=== PATIENT | female | born 1970 | race Caucasian/White ===

== ENCOUNTER → 2020-04-20 12:11 | Outpatient (BNVA) | payer MEDICARE, MEDICAID, SELFPAY | PROVIDERS: PCP Family Medicine; Visit Provider Student in an Organized Health Care Education/Training Program | DX: M05.9 Rheumatoid arthritis with rheumatoid factor, unspecified (principal); Z79.899 Other long term (current) drug therapy | CPT/HCPCS: 99214 ==

== ENCOUNTER → 2020-07-26 15:55 | Outpatient (BNVA) | payer MEDICARE, MEDICAID, SELFPAY | PROVIDERS: PCP Family Medicine; Visit Provider Student in an Organized Health Care Education/Training Program | DX: Z13.89 Encounter for screening for other disorder (principal) | CPT/HCPCS: Q3014 ==

== ENCOUNTER → 2020-08-28 10:32 | Outpatient (BNVA) | payer MEDICARE, MEDICAID, SELFPAY | PROVIDERS: Visit Provider Student in an Organized Health Care Education/Training Program | DX: Z76.89 Persons encountering health services in other specified circumstances (principal) | CPT/HCPCS: Q3014 ==

== ENCOUNTER 2020-11-21 14:04 | Outpatient (REF) | payer MEDICARE, MEDICAID, SELFPAY ==
[2020-11-21 16:29] LABS: MANUAL DIFF FLAG NO
[2020-11-21 16:34] LABS: Basophils Percent Auto 0.3 % (0-2); Eosinophils Percent Auto 0.9 % (0-4); Hematocrit 36.9 % (37-47); Hemoglobin 11.7 g/dl (12.0-16.0); Lymphocytes Absolute Auto 1.4 X10*3/uL (1.2-4.9); Lymphocytes Percent Auto 38.9 % (20-40); Mean Corpuscular HGB Conc 31.7 g/dl (31.0-35.0); Mean Corpuscular Hemoglobin 28.5 pg (27.0-33.0); Mean Corpuscular Volume 89.8 fL (80-98); Mean Platelet Volume 11.8 fL (9.4-12.3); Monocytes Absolute Auto 0.4 X10*3/uL (0.1-1.2); Monocytes Percent Auto 10.2 % (2-11); Neutrophils Absolute Auto 1.8 X10*3/uL (2.0-8.3); Neutrophils Percent Auto 49.7 % (45-73); Platelet Count 235 X10*3/uL (160-400); Red Blood Count 4.11 X10*6/uL (4.20-5.50); Red Cell Distribution Width 13.8 % (11.0-16.0); White Blood Count 3.5 X10*3/uL (4.8-10.8)
[2020-11-21 17:01] LABS: Alanine Aminotransferase 29 U/L (0-31); Albumin Level 4.5 g/dL (3.5-5.0); Alkaline Phosphatase 65 U/L (39-117); Anion Gap 16 (12-20); Aspartate Amino Transferase 32 U/L (5-31); Bilirubin Total 0.6 mg/dL (0.0-1.0); Blood Urea Nitrogen 11 mg/dL (9-16); C Reactive Protein 2.34 mg/dL (< or = 0.50); Carbon Dioxide 25 mmol/L (22-29); Chloride 103 mmol/L (96-108); Cholesterol 171 mg/dL; Estimated Glomerular Filt Rate > 60; Glucose Random 109 mg/dL (60-115); HDL Cholesterol 63 mg/dL; LDL Cholesterol Calculated 93 mg/dl; Potassium 4.2 mmol/L (3.3-5.1); Sodium 140 mmol/L (135-145); Total Protein 7.3 g/dL (6.5-8.0); Triglycerides 78 mg/dL
[2020-11-21 17:59] LABS: Erythrocyte Sedimentation Rate 23 MM/HR (0-20)
[2020-11-21 18:10] LABS: Reflex LDLD? No
== END 2020-11-21 14:05 | disposition home or self-care (01) ==
LOC: HO.HMGCLDS 14:04
PROVIDERS: PCP Family Medicine; Visit Provider Student in an Organized Health Care Education/Training Program
DX: M05.9 Rheumatoid arthritis with rheumatoid factor, unspecified (principal)
CPT/HCPCS: 36415; 80053; 80061; 85025; 85652; 86140

== ENCOUNTER → 2020-12-19 09:46 | Outpatient (BNVA) | payer MEDICARE, MEDICAID, SELFPAY | PROVIDERS: PCP Family Medicine; Visit Provider Student in an Organized Health Care Education/Training Program | DX: M05.9 Rheumatoid arthritis with rheumatoid factor, unspecified (principal); Z79.899 Other long term (current) drug therapy | CPT/HCPCS: 99212 ==

== ENCOUNTER 2021-02-18 11:51 | Outpatient (REF) | payer MEDICARE, MEDICAID, SELFPAY ==
[2021-02-18 13:17] LABS: MANUAL DIFF FLAG NO
[2021-02-18 13:22] LABS: Basophils Percent Auto 0.4 % (0-2); Eosinophils Percent Auto 0.6 % (0-4); Hematocrit 37.3 % (37-47); Hemoglobin 11.9 g/dl (12.0-16.0); Imm Gran Abs Auto 0.01 X10*3/uL (0.00-0.03); Imm Gran Pct Auto 0.2 % (0.0-0.4); Lymphocytes Absolute Auto 1.5 X10*3/uL (1.2-4.9); Lymphocytes Percent Auto 30.9 % (20-40); Mean Corpuscular HGB Conc 31.9 g/dl (31.0-35.0); Mean Corpuscular Hemoglobin 28.7 pg (27.0-33.0); Mean Corpuscular Volume 90.1 fL (80-98); Mean Platelet Volume 11.6 fL (9.4-12.3); Monocytes Absolute Auto 0.4 X10*3/uL (0.1-1.2); Monocytes Percent Auto 7.7 % (2-11); Neutrophils Percent Auto 60.2 % (45-73); Platelet Count 249 X10*3/uL (160-400); Red Blood Count 4.14 X10*6/uL (4.20-5.50); Red Cell Distribution Width 13.8 % (11.0-16.0)
[2021-02-18 13:51] LABS: Alanine Aminotransferase 24 U/L (0-31); Albumin Level 4.7 g/dL (3.5-5.0); Alkaline Phosphatase 65 U/L (39-117); Anion Gap 14 (12-20); Aspartate Amino Transferase 27 U/L (5-31); Bilirubin Total 0.4 mg/dL (0.0-1.0); Blood Urea Nitrogen 8 mg/dL (9-16); C Reactive Protein 2.09 mg/dL (< or = 0.50); Calcium 10.4 mg/dL (8.4-10.2); Carbon Dioxide 29 mmol/L (22-29); Chloride 103 mmol/L (96-108); Estimated Glomerular Filt Rate > 60; Glucose Random 107 mg/dL (60-115); Potassium 4.8 mmol/L (3.3-5.1); Sodium 141 mmol/L (135-145); Total Protein 7.4 g/dL (6.5-8.0)
[2021-02-18 14:12] LABS: Erythrocyte Sedimentation Rate 23 MM/HR (0-20)
== END 2021-02-18 11:52 | disposition home or self-care (01) ==
LOC: HO.LAB 11:51
PROVIDERS: PCP Family Medicine; Visit Provider Student in an Organized Health Care Education/Training Program
DX: M05.9 Rheumatoid arthritis with rheumatoid factor, unspecified (principal)
CPT/HCPCS: 36415; 80053; 85025; 85652; 86140

== ENCOUNTER → 2021-03-11 12:23 | Outpatient (BNVA) | payer MEDICARE, MEDICAID, SELFPAY | PROVIDERS: PCP Family Medicine; Visit Provider Nurse Practitioner Family | DX: M05.9 Rheumatoid arthritis with rheumatoid factor, unspecified (principal) | CPT/HCPCS: 99212 ==

== ENCOUNTER 2021-09-30 12:31 | Outpatient (REF) | payer MEDICARE, MEDICAID, SELFPAY ==
[2021-09-30 13:54] LABS: MANUAL DIFF FLAG NO
[2021-09-30 13:57] LABS: Basophils Percent Auto 0.4 % (0-2); Eosinophils Absolute Auto 0.1 X10*3/uL (0.0-0.4); Eosinophils Percent Auto 1.3 % (0-4); Hemoglobin 11.7 g/dl (12.0-16.0); Imm Gran Abs Auto 0.02 X10*3/uL (0.00-0.03); Imm Gran Pct Auto 0.4 % (0.0-0.4); Lymphocytes Absolute Auto 1.7 X10*3/uL (1.2-4.9); Lymphocytes Percent Auto 35.3 % (20-40); Mean Corpuscular HGB Conc 30.8 g/dl (31.0-35.0); Mean Corpuscular Hemoglobin 28.4 pg (27.0-33.0); Mean Corpuscular Volume 92.2 fL (80.0-98.0); Mean Platelet Volume 11.7 fL (9.4-12.3); Monocytes Absolute Auto 0.4 X10*3/uL (0.1-1.2); Neutrophils Absolute Auto 2.6 x10*3/uL (2.0-8.3); Neutrophils Percent Auto 54.6 % (45-73); Platelet Count 259 X10*3/uL (160-400); Red Blood Count 4.12 X10*6/uL (4.20-5.50); Red Cell Distribution Width 13.9 % (11.0-16.0); White Blood Count 4.7 X10*3/uL (4.8-10.8)
[2021-09-30 14:05] LABS: Alanine Aminotransferase 21 U/L (0-31); Albumin Level 4.5 g/dL (3.5-5.0); Alkaline Phosphatase 68 U/L (39-117); Anion Gap 14 (12-20); Aspartate Amino Transferase 29 U/L (5-31); Bilirubin Total 0.2 mg/dL (0.0-1.0); Blood Urea Nitrogen 10 mg/dL (9-16); C Reactive Protein 1.01 mg/dL (< or = 0.50); Calcium 10.1 mg/dL (8.4-10.2); Carbon Dioxide 30 mmol/L (22-29); Chloride 102 mmol/L (96-108); Estimated Glomerular Filt Rate > 60; Glucose Random 106 mg/dL (60-115); Potassium 4.3 mmol/L (3.3-5.1); Sodium 142 mmol/L (135-145); Total Protein 7.5 g/dL (6.5-8.0)
[2021-09-30 15:30] LABS: Erythrocyte Sedimentation Rate 19 MM/HR (0-20)
== END 2021-09-30 12:32 | disposition home or self-care (01) ==
LOC: HO.HMGCLDS 12:31
PROVIDERS: PCP Family Medicine; Visit Provider Nurse Practitioner Family
DX: M05.9 Rheumatoid arthritis with rheumatoid factor, unspecified (principal)
CPT/HCPCS: 36415; 80053; 85025; 85652; 86140

== ENCOUNTER → 2021-10-15 10:11 | Outpatient (BNVA) | payer MEDICARE, MEDICAID, SELFPAY | PROVIDERS: PCP Family Medicine; Visit Provider Nurse Practitioner Family | DX: M05.9 Rheumatoid arthritis with rheumatoid factor, unspecified (principal) | CPT/HCPCS: 99212 ==

== ENCOUNTER 2022-01-15 13:16 | Outpatient (REF) | payer MEDICARE, MEDICAID, SELFPAY ==
[2022-01-15 14:01] LABS: MANUAL DIFF FLAG NO
[2022-01-15 14:05] LABS: Basophils Percent Auto 0.2 % (0-2); Hematocrit 34.1 % (37.0-47.0); Imm Gran Abs Auto 0.01 X10*3/uL (0.00-0.03); Imm Gran Pct Auto 0.2 % (0.0-0.4); Lymphocytes Absolute Auto 1.8 X10*3/uL (1.2-4.9); Lymphocytes Percent Auto 43.2 % (20-40); Mean Corpuscular HGB Conc 32.3 g/dl (31.0-35.0); Mean Corpuscular Hemoglobin 28.4 pg (27.0-33.0); Mean Corpuscular Volume 87.9 fL (80.0-98.0); Mean Platelet Volume 11.3 fL (9.4-12.3); Monocytes Absolute Auto 0.4 X10*3/uL (0.1-1.2); Monocytes Percent Auto 8.7 % (2-11); Neutrophils Absolute Auto 1.9 x10*3/uL (2.0-8.3); Neutrophils Percent Auto 46.7 % (45-73); Platelet Count 232 X10*3/uL (160-400); Red Blood Count 3.88 X10*6/uL (4.20-5.50); Red Cell Distribution Width 13.5 % (11.0-16.0); White Blood Count 4.1 X10*3/uL (4.8-10.8)
[2022-01-15 14:30] LABS: Alanine Aminotransferase 18 U/L (0-31); Albumin Level 4.4 g/dL (3.5-5.0); Alkaline Phosphatase 70 U/L (39-117); Anion Gap 15 (12-20); Aspartate Amino Transferase 21 U/L (5-31); Bilirubin Total 0.4 mg/dL (0.0-1.0); Blood Urea Nitrogen 8 mg/dL (9-16); C Reactive Protein 1.67 mg/dL (< or = 0.50); Calcium 9.4 mg/dL (8.4-10.2); Carbon Dioxide 26 mmol/L (22-29); Chloride 104 mmol/L (96-108); Estimated Glomerular Filt Rate > 60; Glucose Random 90 mg/dL (60-115); Potassium 3.9 mmol/L (3.3-5.1); Sodium 141 mmol/L (135-145); Total Protein 6.8 g/dL (6.5-8.0)
[2022-01-15 15:03] LABS: Erythrocyte Sedimentation Rate 23 MM/HR (0-20)
== END 2022-01-15 13:17 | disposition home or self-care (01) ==
LOC: HO.HMGCLDS 13:16
PROVIDERS: PCP Family Medicine; Visit Provider Nurse Practitioner Family
DX: M05.9 Rheumatoid arthritis with rheumatoid factor, unspecified (principal)
CPT/HCPCS: 36415; 80053; 85025; 85652; 86140; 99212

== ENCOUNTER 2022-04-18 09:56 | Outpatient (REF) | payer MEDICARE, MEDICAID, SELFPAY ==
[2022-04-18 10:53] LABS: MANUAL DIFF FLAG NO
[2022-04-18 10:55] LABS: Basophils Percent Auto 0.5 % (0-2); Hematocrit 37.5 % (37.0-47.0); Hemoglobin 11.8 g/dl (12.0-16.0); Imm Gran Abs Auto 0.01 X10*3/uL (0.00-0.03); Imm Gran Pct Auto 0.3 % (0.0-0.4); Lymphocytes Absolute Auto 1.5 X10*3/uL (1.2-4.9); Lymphocytes Percent Auto 37.8 % (20-40); Mean Corpuscular HGB Conc 31.5 g/dl (31.0-35.0); Mean Corpuscular Hemoglobin 28.1 pg (27.0-33.0); Mean Corpuscular Volume 89.3 fL (80.0-98.0); Mean Platelet Volume 11.2 fL (9.4-12.3); Monocytes Absolute Auto 0.4 X10*3/uL (0.1-1.2); Monocytes Percent Auto 9.7 % (2-11); Neutrophils Percent Auto 50.7 % (45-73); Platelet Count 240 X10*3/uL (160-400); Red Cell Distribution Width 13.5 % (11.0-16.0); White Blood Count 3.9 X10*3/uL (4.8-10.8)
[2022-04-18 11:03] LABS: Alanine Aminotransferase 17 U/L (0-31); Aspartate Amino Transferase 22 U/L (5-31); C Reactive Protein 0.76 mg/dL (< or = 0.50); Estimated Glomerular Filt Rate > 60
[2022-04-18 11:33] LABS: Erythrocyte Sedimentation Rate 16 MM/HR (0-20)
== END 2022-04-18 09:57 | disposition home or self-care (01) ==
LOC: HO.10HDL 09:56
PROVIDERS: Visit Provider Nurse Practitioner Family
DX: M05.9 Rheumatoid arthritis with rheumatoid factor, unspecified (principal); Z79.899 Other long term (current) drug therapy
CPT/HCPCS: 36415; 82565; 84450; 84460; 85025; 85652; 86140; 99212

== ENCOUNTER → 2022-07-17 10:34 | Outpatient (BNVA) | payer MEDICARE, MEDICAID, SELFPAY | PROVIDERS: PCP Family Medicine; Visit Provider Nurse Practitioner Family | DX: Z23 Encounter for immunization (principal); M05.9 Rheumatoid arthritis with rheumatoid factor, unspecified | CPT/HCPCS: 90471; 90686; 99212 ==

== ENCOUNTER → 2022-10-16 09:02 | Outpatient (BNVA) | payer MEDICARE, MEDICAID, SELFPAY | PROVIDERS: PCP Family Medicine; Visit Provider Nurse Practitioner Family | DX: M05.9 Rheumatoid arthritis with rheumatoid factor, unspecified (principal); M79.7 Fibromyalgia; Z79.899 Other long term (current) drug therapy; Z11.59 Encounter for screening for other viral diseases; Z72.89 Other problems related to lifestyle | CPT/HCPCS: 36415; 82565; 84450; 84460; 85025; 85652; 86140; 86481; 86704; 86706; 86709; 86803; 87340; 99212 ==

== ENCOUNTER 2022-10-16 10:53 | Outpatient (REF) | payer MEDICARE, MEDICAID, SELFPAY ==
[2022-10-16 13:42] LABS: MANUAL DIFF FLAG NO
[2022-10-16 13:53] LABS: Basophils Percent Auto 0.3 % (0-2); Eosinophils Percent Auto 0.5 % (0-4); Hematocrit 36.2 % (37.0-47.0); Hemoglobin 11.7 g/dl (12.0-16.0); Lymphocytes Absolute Auto 1.4 X10*3/uL (1.2-4.9); Lymphocytes Percent Auto 37.7 % (20-40); Mean Corpuscular HGB Conc 32.3 g/dl (31.0-35.0); Mean Corpuscular Hemoglobin 29.1 pg (27.0-33.0); Mean Platelet Volume 11.9 fL (9.4-12.3); Monocytes Absolute Auto 0.3 X10*3/uL (0.1-1.2); Monocytes Percent Auto 8.7 % (2-11); Neutrophils Percent Auto 52.8 % (45-73); Platelet Count 213 X10*3/uL (160-400); Red Blood Count 4.02 X10*6/uL (4.20-5.50); Red Cell Distribution Width 13.5 % (11.0-16.0); White Blood Count 3.7 X10*3/uL (4.8-10.8)
[2022-10-16 14:31] LABS: Alanine Aminotransferase 17 U/L (0-31); Aspartate Amino Transferase 23 U/L (5-31); C Reactive Protein 1.08 mg/dL (< or = 0.50); Estimated Glomerular Filt Rate > 60
[2022-10-16 14:48] LABS: Erythrocyte Sedimentation Rate 16 MM/HR (0-20)
[2022-10-17 08:24] LABS: HBS Num1 0.36 mIU/mL (0-7.99); HBsAGNum1 0.39 S/CO (0.00-0.99); Hepatitis A Antibody IgM 0.17 Index (0-0.79); Hepatitis B Core Antibody Nonreactive (Nonreactive); Hepatitis B Surface Antigen Negative (Negative); ~HepC Num1 1.16 S/CO (0.00-0.79); ~Hepatitis A Antibody IgM Nonreactive (Nonreactive); ~Hepatitis B Surface Antibody NONREACTIVE (Nonreactive); ~Hepatitis C Antibody Reactive (Nonreactive)
[2022-10-19 05:08] LABS: TS Negative Control Passed; TS Panel A 0; TS Panel B 0; TS Positive Control Passed; TSpotTB Negative (Negative)
== END 2022-10-16 10:54 | disposition home or self-care (01) ==
LOC: HO.10HDL 10:53
PROVIDERS: Visit Provider Nurse Practitioner Family
DX: Z13.89 Encounter for screening for other disorder (principal)
CPT/HCPCS: 36415; 82565; 84450; 84460; 85025; 85652; 86140; 86481; 86704; 86706; 86709; 86803; 87340

== ENCOUNTER 2022-10-20 06:45 | Outpatient (REF) | payer MEDICARE, MEDICAID, SELFPAY ==
[2022-10-20 13:13] LABS: ~HepC Num1 1.02 S/CO (0.00-0.79); ~Hepatitis C Antibody Reactive (Nonreactive)
[2022-10-23 13:22] LABS: HCV Log PCR <1.18 NOT DETECTED Log IU/mL (NOT DETECTED); HepC Viral Load <15 NOT DETECTED IU/mL (NOT DETECTED)
== END 2022-10-20 06:46 | disposition home or self-care (01) ==
LOC: HO.HMGCLDS 06:45
PROVIDERS: PCP Family Medicine; Visit Provider Nurse Practitioner Family
DX: R76.8 Other specified abnormal immunological findings in serum (principal)
CPT/HCPCS: 36415; 86803; 87522

== ENCOUNTER 2023-02-17 15:22 | Outpatient (AMB) | payer MEDICARE, MEDICAID, SELFPAY ==
--- NOTE | 2023-02-17 15:25 | A.OFFVIS_ITS ---
Intake Vital Signs 02/17/23 15:26 Height 5 ft 3 in Weight 217 lb BMI 38.4 BP 130/86 Blood Pressure Location Rt brachial Position Sitting Respiration 17 Pulse 75 Pulse Source Pulse Oximeter Temp 97.9 F Temp Source Temporal Artery Scan Pulse Oximetry (%) 99 Oxygen Delivery Method Room Air Intake Visit Reasons: rheumatoid arthritis - LVM with appt Allergies acetaminophen [From Percocet] Allergy (Intermediate, Verified 02/17/23 15:31) Throat swelling,Hives doxycycline Allergy (Intermediate, Verified 02/17/23 15:31) abd pain erythromycin base Allergy (Intermediate, Verified 02/17/23 15:31) rash oxycodone [From Percocet] Allergy (Intermediate, Verified 02/17/23 15:31) Throat swelling,Hives Tetanus Vaccines and Toxoid Allergy (Intermediate, Verified 02/17/23 15:31) throat closing, hives tetracycline Allergy (Intermediate, Verified 02/17/23 15:31) abd pain Medication List - Last Reconciled 02/17/23 by Librado Smith MD albuterol sulfate 90 mcg/actuation 2 puffs inhalation Q6H PRN albuterol sulfate 2.5 mg inhalation Q6H alprazolam (Xanax) 0.5 mg PO BID PRN ascorbic acid (vitamin C) 500 mg PO DAILY bupropion HCl (Wellbutrin XL) 300 mg PO QAM cetirizine (Zyrtec) 10 mg PO DAILY cholecalciferol (vitamin D3) 25 mcg PO DAILY fluticasone propion-salmeterol 500-50 mcg/dose (Advair Diskus) 1 ea inhalation BID fluticasone propionate 50 mcg/actuation (Children's Flonase Allergy Relief) 1 spray intranasal DAILY hydrocodone-ibuprofen 7.5-200 mg 1 tab PO BID PRN hydroxychloroquine 400 mg (2 x 200 mg) PO DAILY ibuprofen 600 mg PO Q8H PRN losartan 50 mg PO DAILY pantoprazole (Protonix) 40 mg PO DAILY HPI HPI Comments History of Present Illness Details This is a 52-year-old female with a past medical history of seropositive RA who presents for follow-up. She was last seen by Jany Thomas 10/09. Patient continues to take hydroxychloroquine 20 mg Twice daily. She continues to have pain and stiffness in her hands, wrists, ankles, feet, knees and shoulders. She stated that she had hepatitis testing by her PCP which is negative. She also had a stress test and Holter testing by a sfdc solution architect. She does not recall the specific details but she was advised to get a repeat echo later this year. She states that she has multiple teeth that need to be pulled. She is currently in the process of finding a dentist that would take her insurance. [facility] Medical History Chest pain Surgical History H/O arthroscopy of right knee History of hysterectomy History of liver biopsy HX: benign breast biopsy S/P laparoscopic procedure Family History Mother No problems noted. Other DJD (degenerative joint disease) Heart disease Hypertension Social History Household Members: None Both parents involved: No Caregiver staying overnight: No Housing: Apartment Alcohol intake: never Patient Tobacco Use Status: Never used Tobacco e-Cigarette/Vaping Use: Never Used service: No Current occupational status: disabled Review of Systems ENT Reports dental pain Musc Reports arthralgias, Reports joint swelling and Reports stiffness Physical Exam Vital Signs: Last Vital Signs Temp 97.9 F 02/17/23 15:26 Pulse 75 02/17/23 15:26 Resp 17 02/17/23 15:26 BP 130/86 02/17/23 15:26 Pulse Ox 99 02/17/23 15:26 Oxygen Delivery Method Room Air 02/17/23 15:26 BMI result Body Mass Index 38.4 Const General: cooperative, healthy appearing and comfortable Nutritional Appearance: obese morbidly obese Orientation/consciousness: patient oriented x3 Limitations: no limitations HEENT Head: Yes normocephalic and Yes atraumatic Mouth: moist mucous membranes Teeth and gingiva: caries Resp Effort & Inspection: normal respiratory effort and able to speak in complete sentences Auscultation: clear to auscultation bilaterally Cardio Rate: regular rate Rhythm: regular rhythm Heart sounds: S1 normal heart sound present and S2 normal heart sound present Skin General skin exam: no rashes or lesions noted Neuro General: patient oriented x3 Extrem Other: Limited left wrist flexion. (related to an accident and surgery years ago) Left wrist tenderness to palpation and pain with full extension Left hand diffuse MCP, PIP and DIP tenderness without significant swelling. Positive MCP squeeze test Right wrist tenderness to palpation and pain with full flexion and extension Diffuse MCP and PIP joint tenderness Positive MCP squeeze test Right elbow pain with full flexion Right ankle tenderness medially Right 2nd 3rd and 4th MTP tenderness and positive MTP squeeze test Left 2nd 3rd and 4th MTP tenderness and positive MTP squeeze test Assessment & Plan Assessment & Plan (1) Seropositive rheumatoid arthritis: Comment: ++RF -ve CCP dx 2003 Sulfasalazine- GI upset Methotrexate oral- GI upset Methotrexate injectable- elevated liver function Enbrel-helped, but she experienced fatigue. Humira - not effective Leflunomide - did not tolerate Kevzara- July 2020 to November 2020 on hold due to frequent tooth infections Plaquenil - 2003- present (partially effective) Code(s): M05.9 - Rheumatoid arthritis with rheumatoid factor, unspecified Plan: 52yoF with seropositive rheumatoid arthritis (RF+ CCP-) in 2008. On Plaquenil since 2003. On exam patient has multiple swollen and tender joints consistent with active RA. Labs show high inflammatory markers. Will need to add DMARDs. Patient however was found to have a positive hepatitis C antibody test at our lab with negative hepatitis-C viral load, patient however states that her PCP ran similar hepatitis testing which was negative. Advised patient to send us those records. She was also evaluated by sfdc solution architect for palpitations, she had a stress test and Holter monitor. Advised patient to send us records from her sfdc solution architect. Patient also has dental caries in needs to have multiple teeth pulled and is currently in the process of finding a dentist.. Discussed Orencia and Actemra. Patient will think about them. Labs today. Follow-up in 3 months (2) Positive hepatitis C antibody test: Code(s): R76.8 - Other specified abnormal immunological findings in serum Plan: As mentioned above. Patient will ask her PCP to send us records Plan I spent 29 minutes reviewing patient's chart, evaluating patient, ordering diagnostic workup, counseling patient and documenting in the chart Orders: Orders Comprehensive Met. Panel Today M05.9 - Rheumatoid arthritis with rheumatoid factor, unspecified C Reactive Protein Today M05.9 - Rheumatoid arthritis with rheumatoid factor, unspecified Complete Blood Count Auto Diff Today M05.9 - Rheumatoid arthritis with rheumatoid factor, unspecified Erythrocyte Sedimentation Rate Today M05.9 - Rheumatoid arthritis with rheumatoid factor, unspecified Coding Level of Care Code Est Pt Level 4 (99451) Diagnoses Seropositive rheumatoid arthritis M05.9 Positive hepatitis C antibody test R76.8
[2023-02-17 15:26] VITALS: BP 130/86; PULSE 75; RESP 17; TEMP 36.6; O2SAT 99; BMI 38.4
== END 2023-02-17 16:10 | disposition home or self-care (01) ==
PROVIDERS: PCP Family Medicine; Visit Provider Student in an Organized Health Care Education/Training Program
DX: M05.79 Rheumatoid arthritis with rheumatoid factor of multiple sites without organ or systems involvement (principal); R76.8 Other specified abnormal immunological findings in serum
CPT/HCPCS: 99214

== ENCOUNTER → 2023-02-17 15:22 | Outpatient (BNVA) | payer MEDICARE, MEDICAID, SELFPAY | PROVIDERS: PCP Family Medicine; Visit Provider Student in an Organized Health Care Education/Training Program | DX: M05.9 Rheumatoid arthritis with rheumatoid factor, unspecified (principal); R76.8 Other specified abnormal immunological findings in serum | CPT/HCPCS: 99212 ==

== ENCOUNTER 2023-06-05 15:46 | Outpatient (REF) | payer MEDICARE, MEDICAID, SELFPAY ==
[2023-06-05 15:57] LABS: MANUAL DIFF FLAG NO
[2023-06-05 16:02] LABS: Basophils Percent Auto 0.2 % (0-2); Eosinophils Absolute Auto 0.1 X10*3/uL (0.0-0.4); Eosinophils Percent Auto 1.2 % (0-4); Hematocrit 35.4 % (37.0-47.0); Hemoglobin 11.4 g/dl (12.0-16.0); Imm Gran Abs Auto 0.01 X10*3/uL (0.00-0.03); Imm Gran Pct Auto 0.2 % (0.0-0.4); Lymphocytes Absolute Auto 1.6 X10*3/uL (1.2-4.9); Mean Corpuscular HGB Conc 32.2 g/dl (31.0-35.0); Mean Corpuscular Hemoglobin 28.9 pg (27.0-33.0); Mean Corpuscular Volume 89.6 fL (80.0-98.0); Mean Platelet Volume 10.5 fL (9.4-12.3); Monocytes Absolute Auto 0.4 X10*3/uL (0.1-1.2); Monocytes Percent Auto 8.8 % (2-11); Neutrophils Absolute Auto 2.1 x10*3/uL (2.0-8.3); Neutrophils Percent Auto 50.6 % (45-73); Platelet Count 207 X10*3/uL (160-400); Red Blood Count 3.95 X10*6/uL (4.20-5.50); Red Cell Distribution Width 13.6 % (11.0-16.0); White Blood Count 4.2 X10*3/uL (4.8-10.8)
[2023-06-05 16:40] LABS: Erythrocyte Sedimentation Rate 14 MM/HR (0-20)
[2023-06-05 16:46] LABS: Alanine Aminotransferase 18 U/L (0-31); Albumin Level 4.4 g/dL (3.5-5.0); Alkaline Phosphatase 63 U/L (39-117); Anion Gap 14 (12-20); Aspartate Amino Transferase 22 U/L (5-31); Bilirubin Total 0.3 mg/dL (0.0-1.0); Blood Urea Nitrogen 8 mg/dL (9-16); C Reactive Protein 0.63 mg/dL (< or = 0.50); Calcium 9.5 mg/dL (8.4-10.2); Carbon Dioxide 28 mmol/L (22-29); Chloride 104 mmol/L (96-108); Estimated Glomerular Filt Rate > 60; Glucose Random 126 mg/dL (60-115); Potassium 3.9 mmol/L (3.3-5.1); Sodium 142 mmol/L (135-145); Total Protein 7.2 g/dL (6.5-8.0)
== END 2023-06-05 15:47 | disposition home or self-care (01) ==
LOC: HO.LAB 15:46
PROVIDERS: PCP Family Medicine; Visit Provider Student in an Organized Health Care Education/Training Program
DX: M05.9 Rheumatoid arthritis with rheumatoid factor, unspecified (principal)
CPT/HCPCS: 36415; 80053; 85025; 85652; 86140

== ENCOUNTER 2023-06-08 08:09 | Outpatient (AMB) | payer MEDICARE, MEDICAID, SELFPAY ==
[2023-06-08 08:12] VITALS: BP 152/78; PULSE 67; TEMP 36.1; O2SAT 98; BMI 40.1
--- NOTE | 2023-06-08 08:12 | MHC.OFFVIS ---
Intake Vital Signs 06/08/23 08:12 Height 5 ft 3 in Weight 226 lb 3.108 oz BMI 40.1 BP 152/78 H Blood Pressure Location Rt brachial Position Sitting Pulse 67 Pulse Source Pulse Oximeter Temp 96.9 F Temp Source Skin Pulse Oximetry (%) 98 Oxygen Delivery Method Room Air Intake Visit Reasons: RA/hip pain Intake Note: Pt last seen 02/17/23, prsents today for follow up and lab results. 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 Accompanied by: Self / Same As Patient Allergies acetaminophen [From Percocet] Allergy (Intermediate, Verified 06/08/23 08:15) Throat swelling,Hives doxycycline Allergy (Intermediate, Verified 06/08/23 08:15) abd pain erythromycin base Allergy (Intermediate, Verified 06/08/23 08:15) rash oxycodone [From Percocet] Allergy (Intermediate, Verified 06/08/23 08:15) Throat swelling,Hives Tetanus Vaccines and Toxoid Allergy (Intermediate, Verified 06/08/23 08:15) throat closing, hives tetracycline Allergy (Intermediate, Verified 06/08/23 08:15) abd pain HPI HPI Comments History of Present Illness Details Ms. Pizano, is a 52-year-old female with seropositive RA, presents for follow-up. She was last seen February 2023. Patient continues to take hydroxychloroquine 200 mg Twice daily. She continues to have diffuse pain and stiffness in her hands, wrists, ankles, feet, knees and shoulders. Denies personal cancer history Denies bone density evaluation Prior Visit: She stated that she had hepatitis testing by her PCP which is negative. She also had a stress test and Holter testing by a investigator vice. She does not recall the specific details but she was advised to get a repeat echo later this year. She states that she has multiple teeth that need to be pulled. She is currently in the process of finding a dentist that would take her insurance. She was also evaluated by investigator vice for palpitations, she had a stress test and Holter monitor. Advised patient to send us records from her investigator vice. [facility] Medical History (Updated 06/08/23 @ 13:29 by ISAURO Horvath) Other rheumatoid arthritis with rheumatoid factor of multiple sites Long-term use of hydroxychloroquine Trochanteric bursitis, right hip Chest pain Surgical History History of liver biopsy H/O arthroscopy of right knee History of hysterectomy S/P laparoscopic procedure HX: benign breast biopsy Family History Mother No problems noted. Other DJD (degenerative joint disease) Heart disease Hypertension Social History Household Members: None Both parents involved: No Caregiver staying overnight: No Housing: Apartment Alcohol intake: never Patient Tobacco Use Status: Never used Tobacco e-Cigarette/Vaping Use: Never Used service: No Current occupational status: disabled Review of Systems Const All systems reviewed & are unremarkable except as noted in HPI and below Physical Exam Vital Signs: Last Vital Signs Temp 96.9 F 06/08/23 08:12 Pulse 67 06/08/23 08:12 BP 152/78 H 06/08/23 08:12 Pulse Ox 98 06/08/23 08:12 Oxygen Delivery Method Room Air 06/08/23 08:12 BMI result Body Mass Index 40.1 APPEARANCE: Patient in no acute distress EYES: no redness, pupils equal and reactive to light, eyelids normal NOSE/SINUS: Airflow through both nares, no nasal discharge, no bleeding THROAT: Oral mucosa moist, no ulcerations NECK: No thyromegaly or masses, no adenopathy, trachea midline. HEART: Regular rhythm, S1-S2 heard, no murmurs, rubs or gallops. LUNG: Clear to auscultation, respiratory rate regular nonlabored. ABD: Normal bowel sounds, abdomen soft, nontender. EXTREMITIES: No edema, no calf tenderness, normal peripheral pulses. NEURO: Oriented and alert x3. No focal weakness. Gait normal. SKIN: No inflammatory or neoplastic lesions. Normal color and turgor JOINT EXAM:?? Cervical Spine:? Full range of motion without pain; no tenderness. Thoracic Spine: No scoliosis.? No tenderness on palpation. Lumbar Spine:? Alignment normal.? Full range of motion without pain, no tenderness. Hands:? Positive MCP squeeze test. Diffuse MCP and PIP joint tenderness . LEFT: Left hand diffuse MCP, PIP and DIP tenderness without significant swelling. Positive MCP squeeze test. Normal range of motion without, increased warmth or erythema. 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 RIGHT: Slight tenderness to palpation throughout MCPs, PIPs and DIPs. Normal range of motion without swelling, increased warmth or erythema. 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 Wrists: Right wrist tenderness to palpation and pain with full flexion and extension, No swelling, increased warmth or erythema; Left wrist tenderness to palpation and pain with full extension,. Limited left wrist flexion. (related to an accident and surgery years ago) Elbows:Normal range of motion without tenderness, swelling, increased warmth or erythema. Widespread diffuse tenderness to palpation down forearms. Right elbow pain with full flexion Shoulders:?? Full range of motion without pain. No tenderness, weakness, swelling, increased warmth or erythema. Hips:? Full range of motion without pain. Hip bursa:? No tenderness. Knees:? LEFT: Normal pain-free range of motion without tenderness, swelling, increased warmth or erythema.? There is no effusion or crepitation. Varicose veins noted in the thigh and lower leg. Widespread diffuse tenderness to palpation down the montaño. RIGHT: Normal pain-free range of motion without tenderness, swelling, increased warmth or erythema.? There is no effusion or crepitation. Varicose veins noted in the thigh and lower leg. Widespread diffuse tenderness to palpation down the montaño. Ankles:? Normal range of motion without tenderness, swelling, increased warmth or erythema. Right ankle tenderness medially Feet:? Normal pain-free range of motion without tenderness, swelling, increased warmth or erythema. Bilateral bunion deformity 1st MTP. Right 2nd 3rd and 4th MTP tenderness and positive MTP squeeze test; Left 2nd 3rd and 4th MTP tenderness and positive MTP squeeze test. Tender points: Tenderness to digital palpation at the occiput, trapezius. No tenderness to the second rib, lateral epicondyle, knees, greater trochanter and gluteal area bilaterally. Const General: cooperative, healthy appearing and comfortable Nutritional Appearance: obese morbidly obese Limitations: no limitations HEENT Mouth: moist mucous membranes Teeth and gingiva: caries Office Procedures Joint Injection/Drain Joint Injection/Drain Primary Site: other (Right Trochanteric Bursa) Prep: site was prepped using aseptic technique, ethochloride spray was applied and injection warnings given Injected: 80 mg of, with 1 mL of and 1% plain lidocaine Approach Used: anterolateral Procedure: The patient tolerated the procedure well, but had some pain with the injection and there was some relief with the local anesthesia Coding - Glenohumeral/Tronchanteric Bursa/Intraarticular Procedure code (CPT) selection complete Results Reviewed Results Reviewed: Labs on 06/05/2023 WBCs 4.2 low RBC 3.95 low HGB 11.4 low HCT 35.4 low ESR 14 normal CRP 0.63 high improved slightly from 10/16/2022 value of 1.08 high Hepatitis C antibody reactive positive; tests for viral load on 10/20/2022 shows no active infection Assessment & Plan Assessment & Plan (1) Other rheumatoid arthritis with rheumatoid factor of multiple sites: Comment: ++RF -ve CCP dx 2003 Sulfasalazine- GI upset Methotrexate oral- GI upset Methotrexate injectable- elevated liver function Enbrel-August 2019 -October 2019 - helped but she experienced fatigue Humira - not effective Leflunomide - did not tolerate [place] Kevzara- July 2020 to November 2020 - stopped due to infections in bilateral toenails and teeth infections. Plaquenil - 2003- present (partially effective) Code(s): M05.89 - Other rheumatoid arthritis with rheumatoid factor of multiple sites (2) Trochanteric bursitis, right hip: Code(s): M70.61 - Trochanteric bursitis, right hip (3) Positive hepatitis C antibody test: Code(s): R76.8 - Other specified abnormal immunological findings in serum (4) Long-term use of hydroxychloroquine: Comment: Started 2003 Code(s): Z79.899 - Other sewer and drain technician (current) drug therapy Plan # Seropositive RA: Mrs. Pizano a 52yoF diagnosed with seropositive rheumatoid arthritis (RF+ CCP-) in 2008. She is currently on Plaquenil since 2003 which has not been adequate coverage for her RA. On exam patient has multiple swollen and tender joints consistent with active RA and labs show high inflammatory markers. She does require additional medication for better management of her RA so we will have to add a DMARD. Patient would like to consider adding Enbrel stating that Enbrel was most effective of all the medications she has tried. Will start PA. She still has some issues to address such as dental work and a current sinus infection. Patient has dental caries in needs to have multiple teeth pulled and is currently in the process of waiting for her dental insurance to be active in approx more month. The positive hepatitis C antibody test at our lab with negative hepatitis-C viral load therefore I presume she does not have an active Hep C infection. #Trochanteric bursitis: On PE there marked tenderness on bilateral trochanteric areas. We will inject the right side today. #Long-term use of immunosuppressives: Last recorded visit for the pesticide control inspector was November 2021 ; patient is due for updated visit. There was some gross abnormalities in her CBC with low RBC, low hematocrit; no intervention needed currently, will continue to monitor. Will obtain labs before next visit. I discussed the risk of medications with patient including but not limited to lowered immunity, increased risk for infections and decreased white blood cell count. She will do monitoring labs 8 weeks after starting the Enbrel. She will follow-up in the office in 8 months. Unable to tolerate 5 mg prednisone due to GI upset I spent 30 minutes reviewing patient's chart, evaluating patient, ordering diagnostic workup, counseling patient and documenting in the chart Orders: Orders AMB Joint Injection/Aspiration Today M70.61 - Trochanteric bursitis, right hip Alanine Aminotransferase 8 Weeks Z79.899 - Other sewer and drain technician (current) drug therapy Aspartate Amino Transferase 8 Weeks Z79.899 - Other skilled nursing (current) drug therapy Complete Blood Count Auto Diff 8 Weeks Z79.899 - Other sewer and drain technician (current) drug therapy Erythrocyte Sedimentation Rate 8 Weeks M05.9 - Rheumatoid arthritis with rheumatoid factor, unspecified C Reactive Protein 8 Weeks M05.9 - Rheumatoid arthritis with rheumatoid factor, unspecified Creatinine 8 Weeks Z79.899 - Other sewer and drain technician (current) drug therapy Medications: New etanercept (Enbrel SureClick) 50 mg subcut QWEEK 4 mL 0RF M05.89 - Other rheumatoid arthritis with rheumatoid factor of multiple sites Coding Level of Care Code Est Pt Level 4 (77577) Diagnoses Other rheumatoid arthritis with rheumatoid factor of multiple sites M05.89 Trochanteric bursitis, right hip M70.61 Positive hepatitis C antibody test R76.8 Long-term use of hydroxychloroquine Z79.899 CPT Codes Coding - Joint 7: 87178 - Glenohumeral/Tronchanteric Bursa/Intraarticular ([id number])
== END 2023-06-08 09:14 | disposition home or self-care (01) ==
PROVIDERS: PCP Family Medicine; Visit Provider Nurse Practitioner Family
DX: M05.89 Other rheumatoid arthritis with rheumatoid factor of multiple sites (principal); M70.61 Trochanteric bursitis, right hip; R76.8 Other specified abnormal immunological findings in serum; Z79.899 Other long term (current) drug therapy
CPT/HCPCS: 20610; 99214

== ENCOUNTER → 2023-06-08 08:09 | Outpatient (BNVA) | payer MEDICARE, MEDICAID, SELFPAY | PROVIDERS: PCP Family Medicine; Visit Provider Nurse Practitioner Family | DX: M05.89 Other rheumatoid arthritis with rheumatoid factor of multiple sites (principal); M70.61 Trochanteric bursitis, right hip; R76.8 Other specified abnormal immunological findings in serum; Z79.899 Other long term (current) drug therapy | CPT/HCPCS: 20610; 99212 ==

== ENCOUNTER 2023-07-24 15:11 | Outpatient (REF) | payer MEDICARE, MEDICAID, SELFPAY | END 2023-07-24 15:12 | disposition home or self-care (01) | LOC: HO.HMGCLDS 15:11 | PROVIDERS: PCP Family Medicine; Visit Provider Nurse Practitioner Family | DX: M05.9 Rheumatoid arthritis with rheumatoid factor, unspecified (principal); Z79.899 Other long term (current) drug therapy | CPT/HCPCS: 36415; 82565; 84450; 84460; 85025; 85652; 86140 ==

== ENCOUNTER 2023-07-28 08:39 | Outpatient (AMB) | payer MEDICARE, MEDICAID, SELFPAY ==
--- NOTE | 2023-07-28 08:42 | A.OFFVIS_ITS ---
Intake Vital Signs 07/28/23 08:50 Height 5 ft 3 in Weight 223 lb 5.252 oz BMI 39.6 BP 140/80 H Blood Pressure Location Lt brachial Position Sitting Pulse 93 Pulse Source Pulse Oximeter Temp 97 F Temp Source Skin Pulse Oximetry (%) 97 Oxygen Delivery Method Room Air Intake Visit Reasons: RA Intake Note: Patient last seen 06/08/23, presents today for follow up and test results. Would like to discuss Enbrel. Tap Builder Required: No Accompanied by: Self / Same As Patient Allergies acetaminophen [From Percocet] Allergy (Intermediate, Verified 07/28/23 08:51) Throat swelling,Hives doxycycline Allergy (Intermediate, Verified 07/28/23 08:51) abd pain erythromycin base Allergy (Intermediate, Verified 07/28/23 08:51) rash oxycodone [From Percocet] Allergy (Intermediate, Verified 07/28/23 08:51) Throat swelling,Hives Tetanus Vaccines and Toxoid Allergy (Intermediate, Verified 07/28/23 08:51) throat closing, hives tetracycline Allergy (Intermediate, Verified 07/28/23 08:51) abd pain HPI HPI Comments History of Present Illness Details Ms. Pizano, is a 52-year-old female with CCP+RF+ RA, presents for follow- up. She was last seen May 2023. Patient continues to take hydroxychloroquine 200 mg Twice daily. She continues to have diffuse pain and stiffness in her hands, wrists, ankles, feet, knees and shoulders. She did not start the Enbrel as agreed. Patient states she wants to get her dental concerns resolved before starting the Enbrel 50 mg Q week as she is prone to dental infections. She does report that the right trochanteric bursitis injection she received that lasted it has been very helpful. Patient reports she had a bout of depression for about 2 weeks during holiday season; for which she was prescribed a medication.. However she had not start the medication because the pharmacy had informed her that there is a potential interaction (can cause arrhythmias) between that medication and hydroxychloroquine. Patient states she will reach out to her primary care to discuss concerns and potentially get an alternative medication for her depression. Denies personal cancer history Denies bone density evaluation Prior Visit: She stated that she had hepatitis testing by her PCP which is negative. She also had a stress test and Holter testing by a travel coordinator. She does not recall the specific details but she was advised to get a repeat echo later this year. She states that she has multiple teeth that need to be pulled. She is currently in the process of finding a dentist that would take her insurance. She was also evaluated by travel coordinator for palpitations, she had a stress test and Holter monitor. Advised patient to send us records from her travel coordinator. [facility] Medical History (Updated 06/08/23 @ 13:29 by SANTANA Horvath) Other rheumatoid arthritis with rheumatoid factor of multiple sites Long-term use of hydroxychloroquine Trochanteric bursitis, right hip Chest pain Surgical History History of liver biopsy H/O arthroscopy of right knee History of hysterectomy S/P laparoscopic procedure HX: benign breast biopsy Family History Mother No problems noted. Other DJD (degenerative joint disease) Heart disease Hypertension Social History Household Members: None Both parents involved: No Caregiver staying overnight: No Housing: Apartment Alcohol intake: never Patient Tobacco Use Status: Never used Tobacco e-Cigarette/Vaping Use: Never Used service: No Current occupational status: disabled Review of Systems Const All systems reviewed & are unremarkable except as noted in HPI and below Physical Exam Vital Signs: Last Vital Signs Temp 97 F 07/28/23 08:50 Pulse 93 07/28/23 08:50 BP 140/80 H 07/28/23 08:50 Pulse Ox 97 07/28/23 08:50 Oxygen Delivery Method Room Air 07/28/23 08:50 BMI result Body Mass Index 39.6 APPEARANCE: Patient in no acute distress EYES: no redness, eyelids normal THROAT: Oral mucosa moist, no ulcerations NECK: No thyromegaly or masses, no adenopathy, trachea midline. HEART: Regular rhythm, S1-S2 heard, no murmurs, rubs or gallops. LUNG: Clear to auscultation, respiratory rate regular nonlabored. EXTREMITIES: No edema, no calf tenderness, normal peripheral pulses. NEURO: Oriented and alert x3. No focal weakness. Gait normal. SKIN: No inflammatory or neoplastic lesions. Normal color and turgor JOINT EXAM:?? Hands:? Positive MCP squeeze test. Diffuse MCP and PIP joint tenderness . LEFT: Left hand diffuse MCP, PIP and DIP tenderness without significant swelling. Positive MCP squeeze test. Normal range of motion without, increased warmth or erythema. Able to make a full fist and has a good administrative support specialist strength. RIGHT: Slight tenderness to palpation throughout MCPs, PIPs and DIPs. Normal range of motion without swelling, increased warmth or erythema. Able to make a full fist and has a good administrative support specialist strength. Wrists: Right wrist tenderness to palpation and pain with full flexion and extension, No swelling, increased warmth or erythema; Left wrist tenderness to palpation and pain with full extension,. Limited left wrist flexion. (related to an accident and surgery years ago) Elbows:Normal range of motion without tenderness, swelling, increased warmth or erythema. Widespread diffuse tenderness to palpation down forearms. Right elbow pain with full flexion Shoulders:?? Full range of motion without pain. No tenderness, weakness, swelling, increased warmth or erythema. Hip bursa:? No tenderness. Knees:? LEFT: Normal pain-free range of motion without tenderness, swelling, increased warmth or erythema.? There is no effusion or crepitation. Varicose veins noted in the thigh and lower leg. Widespread diffuse tenderness to palpation down the montaño. RIGHT: Normal pain-free range of motion without tenderness, swelling, increased warmth or erythema.? There is no effusion or crepitation. Varicose veins noted in the thigh and lower leg. Widespread diffuse tenderness to palpation down the montaño. Ankles:? Normal range of motion without tenderness, swelling, increased warmth or erythema. Right ankle tenderness medially Feet:? Normal pain-free range of motion without tenderness, swelling, increased warmth or erythema. Bilateral bunion deformity 1st MTP. Right 2nd 3rd and 4th MTP tenderness and positive MTP squeeze test; Left 2nd 3rd and 4th MTP tenderness and positive MTP squeeze test. Tender points: Tenderness to digital palpation at the occiput, trapezius. No tenderness to the second rib, lateral epicondyle, knees, greater trochanter and gluteal area bilaterally. Const General: cooperative, healthy appearing and comfortable Nutritional Appearance: obese morbidly obese Limitations: no limitations HEENT Mouth: moist mucous membranes Teeth and gingiva: caries Results Reviewed Results Reviewed: Laboratory Tests 07/24/23 15:15 WBC 4.5 L RBC 4.16 L Hgb 11.9 L ESR 23 H C-Reactive Protein 1.03 H Assessment & Plan Assessment & Plan (1) Other rheumatoid arthritis with rheumatoid factor of multiple sites: Comment: ++RF -ve CCP dx 2003 Sulfasalazine- GI upset Methotrexate oral- GI upset Methotrexate injectable- elevated liver function Enbrel-August 2019 -October 2019 - helped but she experienced fatigue Humira - not effective Leflunomide - did not tolerate [place] Kevzara- July 2020 to November 2020 - stopped due to infections in bilateral toenails and teeth infections. Plaquenil - 2003- present (partially effective) Code(s): M05.89 - Other rheumatoid arthritis with rheumatoid factor of multiple sites (2) Trochanteric bursitis, right hip: Code(s): M70.61 - Trochanteric bursitis, right hip (3) Positive hepatitis C antibody test: Code(s): R76.8 - Other specified abnormal immunological findings in serum (4) Long-term use of hydroxychloroquine: Comment: Started 2003 Code(s): Z79.899 - Other salvage determiner (current) drug therapy Plan # Seropositive RA: Mrs. Pizano a 52yoF diagnosed with seropositive rheumatoid arthritis (RF+ CCP-) in 2008. She is currently on Plaquenil since 2003 which may not be adequate coverage for her RA. On exam patient has multiple swollen and tender joints consistent with active RA and labs continue to show increase in inflammatory markers. She does require additional medication for better management of her RA so decided to add Enbrel 50 mg QW. However patient did not start the Enbrel. Per patient she would like to resolve her dental concerns prior to starting Enbrel given that she is prone to dental infections. She has received a dental insurance card since last week she will proceed to locating a dentist that will do the work and per patient hopefully she can afford what is required. We anticipate that this will not be resolved within the next 4 months so there will be no expectation that her RA condition will improve for the next visit. Patient understands this and she will call the office if she can start taking Enbrel. Patient was also admonished to get clearance from the dentist after any dental work to assure that there is no latent infection and that healing has completed before she starts to take Enbrel. She still has some issues to address such as dental work and a current sinus infection. Patient has dental caries in needs to have multiple teeth pulled and is currently in the process of waiting for her dental insurance to be active in approx more month. The positive hepatitis C antibody test at our lab with negative hepatitis-C viral load therefore I presume she does not have an active Hep C infection. #Right Trochanteric bursitis: On PE there is mild tenderness. The cortisone injection administered at the May 2023 visit seems to have helped significantly. #Long-term use of immunosuppressives: Last recorded visit for the retail beauty specialist was November 2021 ; patient is due for updated visit. There was some mild decrease in her CBC with low RBC and low hematocrit; but no intervention needed currently, will continue to monitor. Will obtain labs before next visit. I discussed the risk of medications with patient including but not limited to lowered immunity, increased risk for infections and decreased white blood cell count. She will do monitoring labs 8 weeks after starting the Enbrel. Upon inquiry for additional concerns, the patient revealed that she was prescribed a medication (she forgot the name, we later found out to be hydroxyzine) for depression. Patient was reminded that it is important to report medication changes. Given that hydroxychloroquine can possible cause QT prolongation, this may be the concern the Pharmacy alerted her to with hydroxyzine. Patient will discuss alternatives with her primary care. We have added hydroxyzine to her medication list at this visit.. She will follow-up in the office in 4 months. Unable to tolerate 5 mg prednisone due to GI upset I spent 25 minutes reviewing patient's chart, evaluating patient, ordering diagnostic workup, counseling patient and documenting in the chart Orders: Orders C Reactive Protein 4 Months M05.9 - Rheumatoid arthritis with rheumatoid factor, unspecified Erythrocyte Sedimentation Rate 4 Months M05.9 - Rheumatoid arthritis with rheumatoid factor, unspecified Complete Blood Count Auto Diff 4 Months M05.9 - Rheumatoid arthritis with rheumatoid factor, unspecified, Z79.899 - Other fdc (current) drug therapy Coding Level of Care Code Est Pt Level 3 (36841) Diagnoses Other rheumatoid arthritis with rheumatoid factor of multiple sites M05.89 Trochanteric bursitis, right hip M70.61 Positive hepatitis C antibody test R76.8 Long-term use of hydroxychloroquine Z79.893
[2023-07-28 08:50] VITALS: BP 140/80; PULSE 93; TEMP 36.1; O2SAT 97; BMI 39.6
== END 2023-07-28 09:02 | disposition home or self-care (01) ==
PROVIDERS: PCP Family Medicine; Visit Provider Nurse Practitioner Family
DX: M05.89 Other rheumatoid arthritis with rheumatoid factor of multiple sites (principal); M70.61 Trochanteric bursitis, right hip; R76.8 Other specified abnormal immunological findings in serum; Z79.899 Other long term (current) drug therapy
CPT/HCPCS: 99213

== ENCOUNTER → 2023-07-28 08:39 | Outpatient (BNVA) | payer MEDICARE, MEDICAID, SELFPAY | PROVIDERS: PCP Family Medicine; Visit Provider Nurse Practitioner Family | DX: M05.89 Other rheumatoid arthritis with rheumatoid factor of multiple sites (principal); M70.61 Trochanteric bursitis, right hip; R76.8 Other specified abnormal immunological findings in serum; Z79.899 Other long term (current) drug therapy | CPT/HCPCS: 99212 ==

== ENCOUNTER 2023-12-01 11:58 | Outpatient (REF) | payer MEDICARE, MEDICAID, SELFPAY ==
[2023-12-01 13:16] LABS: MANUAL DIFF FLAG NO
[2023-12-01 13:21] LABS: Basophils Percent Auto 0.2 % (0-2); Eosinophils Percent Auto 0.9 % (0-4); Hematocrit 36.6 % (37.0-47.0); Hemoglobin 11.8 g/dl (12.0-16.0); Imm Gran Abs Auto 0.01 X10*3/uL (0.00-0.03); Imm Gran Pct Auto 0.2 % (0.0-0.4); Lymphocytes Absolute Auto 1.5 X10*3/uL (1.2-4.9); Lymphocytes Percent Auto 33.3 % (20-40); Mean Corpuscular HGB Conc 32.2 g/dl (31.0-35.0); Mean Corpuscular Hemoglobin 29.3 pg (27.0-33.0); Mean Corpuscular Volume 90.8 fL (80.0-98.0); Mean Platelet Volume 11.5 fL (9.4-12.3); Monocytes Absolute Auto 0.4 X10*3/uL (0.1-1.2); Neutrophils Absolute Auto 2.5 x10*3/uL (2.0-8.3); Neutrophils Percent Auto 57.4 % (45-73); Platelet Count 222 X10*3/uL (160-400); Red Blood Count 4.03 X10*6/uL (4.20-5.50); Red Cell Distribution Width 13.3 % (11.0-16.0); White Blood Count 4.4 X10*3/uL (4.8-10.8)
[2023-12-01 13:48] LABS: C Reactive Protein 1.18 mg/dL (< or = 0.50)
[2023-12-01 14:01] LABS: Erythrocyte Sedimentation Rate 20 MM/HR (0-20)
== END 2023-12-01 11:59 | disposition home or self-care (01) ==
LOC: HO.HMGCLDS 11:58
PROVIDERS: PCP Family Medicine; Visit Provider Nurse Practitioner Family
DX: M05.9 Rheumatoid arthritis with rheumatoid factor, unspecified (principal); Z79.899 Other long term (current) drug therapy
CPT/HCPCS: 36415; 85025; 85652; 86140